=== PATIENT | male | born 1990 | race Two or more races ===

== ENCOUNTER 2018-02-14 00:18 | Emergency (ER) | payer OTHER ==
[~2018-02-14] VITALS: Ht 188 cm; Wt 81.6 kg
[2018-02-14 00:42] VITALS: BP 115/77
[2018-02-14] MEDS ORDERED: HYDROcodone-ACET 5/325MG TAB PO ONE (00:45)
== END 2018-02-14 01:40 | disposition home or self-care (01) ==
LOC: ER 00:24
DX: S92.531A Displaced fracture of distal phalanx of right lesser toe(s), initial encounter for closed fracture (principal); W22.8XXA Striking against or struck by other objects, initial encounter; Y93.89 Activity, other specified; Y99.8 Other external cause status; Y92.89 Other specified places as the place of occurrence of the external cause
CPT/HCPCS: 29515; 73660

== ENCOUNTER 2018-02-25 16:34 | Emergency (ER) | payer OTHER ==
[~2018-02-25] VITALS: Ht 188 cm; Wt 81.6 kg
[2018-02-25 16:42] VITALS: BP 142/70
[2018-02-25] MEDS ORDERED: LIDOCAINE 1%HCL (LOCAL ANESTH) 10 ML MDV ONE (17:24)
[2018-02-25] MEDS ORDERED: LIDOCAINE 1% HCL (LOCAL ANESTH.) INJ 20ML MDV IJ ONE (17:30)
== END 2018-02-25 17:37 | disposition home or self-care (01) ==
LOC: ER 16:43
DX: S61.210A Laceration without foreign body of right index finger without damage to nail, initial encounter (principal); W26.0XXA Contact with knife, initial encounter; Y93.89 Activity, other specified; Y99.8 Other external cause status; Y92.89 Other specified places as the place of occurrence of the external cause
CPT/HCPCS: 12001; 99283; J2001